=== PATIENT | female | born 1985 | race Caucasian/White ===

== ENCOUNTER 2018-08-17 12:41 | Outpatient (CLI) | payer BC ==
--- NOTE | 2018-08-17 16:42 | NM ---
HEPATOBILIARY SCAN: 08/17/18 HISTORY: Right upper quadrant pain. Radiopharmaceutical: 5.4 millicuries technetium 99m Mebrofenin injected intravenously. FINDINGS: There is good tracer extraction by the liver with prompt excretion into the biliary tract and small b owel loops and normal filling of the gallbladder. The calculated gallbladder ejection fraction following an oral fatty meal measures 42%. IMPRESSION: Normal exam. POS: TPC
== END 2018-08-17 12:42 | disposition home or self-care (01) ==
LOC: NM 12:41
PROVIDERS: ATTEND Internal Medicine Gastroenterology
DX: R10.11 Right upper quadrant pain (principal)
CPT/HCPCS: 78227; A9537

== ENCOUNTER 2020-05-30 14:56 | Outpatient (CLI) | payer BC ==
--- NOTE | 2020-05-30 15:19 | RAD ---
EXAM: Chest PA and lateral: HISTORY: Viral syndrome COMPARISON: None FINDINGS: Heart: Normal cardiac silhouette Aorta: Unremarkable Pulmonary vessels: Normal Costophrenic angles: Costophrenic angles are clear. Lungs: No consolidation or masses. Pneumothorax: No pneumothorax Osseous structures: No osseous abnormalities IMPRESSION: No acute cardiopulmonary process.
== END 2020-05-30 14:57 | disposition home or self-care (01) ==
LOC: BICRAD 14:56
PROVIDERS: ATTEND Family Medicine
DX: B34.9 Viral infection, unspecified (principal)
CPT/HCPCS: 71046